=== PATIENT | female | born 1950 | race Caucasian/White ===

== ENCOUNTER → 2018-12-26 13:07 | Outpatient (CLI) | payer MEDICARE, OTHER, SELFPAY | PROVIDERS: Visit Provider Physician Assistant | DX: R68.89 Other general symptoms and signs (principal) | CPT/HCPCS: 87400 ==

== ENCOUNTER 2025-06-12 19:43 | Inpatient (IN) | payer MEDICARE, OTHER, SELFPAY ==
[2025-06-12] VITALS (10 sets, daily range): BP systolic 114–150; BP diastolic 54–65; PULSE 58–70; RESP 16–23; TEMP 36.1; O2SAT 92–99; BMI 17.4
--- NOTE | 2025-06-12 19:57 | EKG_ITS ---
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
[2025-06-12 20:08] LABS: Add Manual Diff / Slide Review NO; Hematocrit 38.2 % (36-46); Hemoglobin 13.1 g/dL (12.0-16.0); Lymphocytes Absolute Auto 1900 /uL (1100-4500); Mean Corpuscular HGB Conc 34.3 % (30-36); Mean Corpuscular Hemoglobin 33.8 PG (26-34); Mean Corpuscular Volume 98.8 fL (80-100); Platelet Count 231 X10^3/uL (150-400)
[2025-06-12 20:12] LABS: Alanine Aminotransferase 16 IU/L (<35); Albumin 4.1 g/dL (3.5-5.0); Albumin Globulin Ratio 1.5 (1.0-2.8); Alkaline Phosphatase 78 U/L (38-126); Blood Urea Nitrogen 22 mg/dL (7-17); Calcium 9.5 mg/dL (8.4-10.2); Carbon Dioxide 29 mmol/L (22-32); Chloride 102 mmol/L (98-107); Estimated Glomerular Filt Rate > 60 mL/min (>60); Globulin 2.8 g/dL (1.7-4.1); Glucose 173 mg/dL (70-99); HEMOLYSIS < 15 (0-50); Potassium 4.0 mmol/L (3.4-5.1); Sodium 135 mmol/L (137-145); Total Protein 6.9 g/dL (6.3-8.2)
[2025-06-12 21:01] LABS: Lipase 53838 U/L (23-300)
--- NOTE | 2025-06-12 21:25 | ED.ABDPAIN ---
HPI - Abdominal Pain General Chief Complaint: Abdominal Pain Stated Complaint: abd pain Time Seen by Provider: 06/12/25 20:05 Source: patient and EMS Mode of arrival: EMS History of Present Illness HPI narrative: 74-year-old female with no history of prior abdominopelvic surgeries, it is not recall any gallbladder problems or pancreas problems or ulcer problems, complains of periumbilical discomfort since noon earlier today, had nausea with nonbloody emesis x2 small amounts, no black or red color to emesis, no coffee-ground quality, no black or red stools, bowel movement earlier today unremarkable. Patient started prednisone taper for rheumatoid arthritis, no new medications, taking same azathioprine and valacyclovir and fluoxetine medications. She has started prednisone taper for her rheumatoid arthritis, no other new medications. Denies alcohol use. No recent trauma injury. MD complaint: abdominal pain Related Data Home Medications ?Medication ?Instructions ?Recorded ?Confirmed fluoxetine 20 mg capsule 20 mg PO DAILY 12/26/18 06/13/25 valacyclovir 500 mg tablet 500 mg PO DAILY 05/19/25 06/13/25 azathioprine 50 mg tablet 100 mg PO DAILY 06/13/25 06/13/25 ketoconazole 2 % topical cream 1 applic topical DAILY PRN Skin 06/13/25 06/13/25 condition metronidazole 0.75 % topical cream 1 applic topical BID 06/13/25 06/13/25 prednisone 5 mg tablet 10 mg PO DAILY 06/13/25 06/13/25 Allergies Allergy/AdvReac Type Severity Reaction Status Date / Time clindamycin Allergy Mild rash Verified 06/12/25 19:51 Patient History Medical History (Updated 06/13/25 @ 05:38 by Dani Mathews RN) Rheumatoid arthritis Anxiety Depression HSV-2 (herpes simplex virus 2) infection Exam Narrative Exam Narrative: GENERAL: Well-developed patient, in mild distress. HEAD: Atraumatic. Normocephalic. EYES: Pupils equal round and reactive. Extraocular motions intact. No scleral icterus. No injection or drainage. ENT: Nose without bleeding, purulent drainage. Throat without erythema, tonsillar hypertrophy or exudate. Airway patent. NECK: Trachea midline. Non tender CARDIOVASCULAR: Regular rate and rhythm without murmurs, gallops, or rubs. RESPIRATORY: Clear to auscultation. Breath sounds equal bilaterally. No wheezes, rales, or rhonchi. GASTROINTESTINAL: Abdomen soft, non-tender, nondistended. EXTREMITIES: No edema or joint tenderness. BACK: Nontender without deformity or crepitance. No flank tenderness. NEURO: AOx3. Motor functions grossly nonfocal. SKIN: No rash or erythema of visible areas Initial Vital Signs Initial Vital Signs: Vital Signs Pulse Rate 63 06/12/25 19:46 Blood Pressure 129/60 06/12/25 19:46 Pulse Oximetry 92 06/12/25 19:46 Course Orders Ordered: ED Orders 06/12/25 22:36 CT abdomen pelvis w con Stat Acetaminophen (Acetaminophen 650 Mg Supp) 650 mg WI Q4HR PRN PRN Reason: Fever/Mild Pain (1-3) Famotidine (Famotidine 20 Mg/2 Ml Vial) 20 mg IV NOW MONY Last Admin: 06/12/25 22:41 Dose: 20 mg Documented By: LUIS ANTONIO Hydromorphone HCl (Hydromorphone Hcl 0.5 Mg/0.5 Ml Syringe) 0.5 mg IV Q2H PRN PRN Reason: Pain, Severe (7-10) Sodium Chloride (Normal Saline 0.9%) 1,000 mls @ 200 mls/hr IV CONT MONY Ketorolac Tromethamine (Ketorolac 30 Mg/Ml Vial) 15 mg IV Q6H PRN PRN Reason: moderate pain Stop: 06/18/25 05:35 Naloxone HCl (Naloxone 0.4 Mg/Ml Vial) 0.2 mg IV Q2MIN PRN PRN Reason: Opiate Reversal Ondansetron HCl (Ondansetron 4 Mg/2 Ml Inj) 4 mg IV NOW PRN PRN Reason: Nausea And Vomiting Ondansetron HCl (Ondansetron 4 Mg Odt) 4 mg PO NOW PRN PRN Reason: Nausea And Vomiting Discontinued Medications Hydromorphone HCl (Hydromorphone Hcl 0.5 Mg/0.5 Ml Syringe) 0.5 mg IV NOW ONE Stop: 06/12/25 23:33 Last Admin: 06/12/25 23:37 Dose: 0.5 mg Documented By: LUIS ANTONIO Sodium Chloride (Normal Saline 0.9%) 1,000 mls @ 1,000 mls/hr IV BOLUS ONE Stop: 06/12/25 23:25 Last Infusion: 06/12/25 23:32 Dose: Infused Documented By: LUIS ANTONIO Admin: 06/12/25 22:41 Dose: 1,000 mls/hr Documented By: LUIS ANTONIO Vital Signs Vital signs: Vital Signs - 8 hr 06/12/25 22:00 06/12/25 22:00 06/12/25 22:30 Pulse Rate 60 Respiratory Rate 23 Blood Pressure 136/60 136/60 Pulse Oximetry 99 Oxygen Delivery Method 06/12/25 22:30 06/12/25 23:00 06/12/25 23:00 Pulse Rate 62 63 Respiratory Rate 23 22 Blood Pressure 150/65 H Pulse Oximetry 96 98 Oxygen Delivery Method 06/13/25 01:57 06/13/25 01:59 06/13/25 01:59 Pulse Rate 63 61 Respiratory Rate 21 Blood Pressure 130/58 L Pulse Oximetry 94 98 Oxygen Delivery Method 06/13/25 02:00 06/13/25 02:00 06/13/25 02:30 Pulse Rate 60 62 Respiratory Rate 13 14 Blood Pressure 132/62 Pulse Oximetry 97 96 Oxygen Delivery Method 06/13/25 02:30 06/13/25 03:00 06/13/25 03:00 Pulse Rate 68 Respiratory Rate 16 Blood Pressure 119/56 L 122/61 Pulse Oximetry 97 Oxygen Delivery Method Room Air 06/13/25 03:30 06/13/25 03:30 06/13/25 04:00 Pulse Rate 62 74 Respiratory Rate 18 24 Blood Pressure 120/57 L Pulse Oximetry 97 92 Oxygen Delivery Method 06/13/25 04:01 06/13/25 04:01 06/13/25 04:30 Pulse Rate 66 61 Respiratory Rate 24 17 Blood Pressure 147/68 H Pulse Oximetry 92 97 Oxygen Delivery Method 06/13/25 04:31 06/13/25 04:31 Pulse Rate 60 Respiratory Rate 21 Blood Pressure 129/58 L Pulse Oximetry 96 Oxygen Delivery Method MDM - Abdominal Pain Lab Data Attestation: I reviewed the patient's lab results. Lab results narrative: White blood cell count 9100, hemoglobin 13.1, platelets adequate. Glucose 173, renal function unremarkable, serum CO2 29 normal, potassium normal, sodium 135 slight decreased. Liver functions normal. Lipase 22517 markedly elevated. Urinalysis pending. 06/12/25 19:40 06/12/25 19:40 Labs: Lab Results 06/12/25 Range/Units 19:40 WBC 9.1 (4.5-11.0) X10^3/uL RBC 3.86 L (4.0-5.2) X10^6/uL Hgb 13.1 (12.0-16.0) g/dL Hct 38.2 (36-46) % MCV 98.8 (80-100) fL MCH 33.8 (26-34) PG MCHC 34.3 (30-36) % RDW 14.4 (11.6-14.8) % Plt Count 231 (150-400) X10^3/uL Neut % (Auto) 73.7 (50-75) % Lymph % (Auto) 20.6 L (25-40) % [place] % (Auto) 4.0 (3-14) % Eos % (Auto) 0.7 L (2-4) % Baso % (Auto) 1.0 (0-2) % Neut # (Auto) 6700 (3186-7963) /uL Lymph # (Auto) 1900 (6330-6859) /uL [place] # (Auto) 400 (0-900) /uL Eos # (Auto) 100 (0-450) /uL Baso # (Auto) 100 (0-100) /uL Sodium 135 L (137-145) mmol/L Potassium 4.0 (3.4-5.1) mmol/L Chloride 102 (98-107) mmol/L Carbon Dioxide 29 (22-32) mmol/L BUN 22 H (7-17) mg/dL Creatinine 0.67 (0.52-1.04) mg/dL Estimated GFR > 60 (>60) mL/min BUN/Creatinine Ratio 32.8 H (6-22) Glucose 173 H (70-99) mg/dL Calcium 9.5 (8.4-10.2) mg/dL Total Bilirubin 0.9 (0.2-1.3) mg/dL AST 27 (14-36) IU/L ALT 16 (<35) IU/L Alkaline Phosphatase 78 (38-126) U/L Total Protein 6.9 (6.3-8.2) g/dL Albumin 4.1 (3.5-5.0) g/dL Globulin 2.8 (1.7-4.1) g/dL Albumin/Globulin Ratio 1.5 (1.0-2.8) Lipase 75508 H (23-300) U/L Point of care testing: Urine Dip Bedside Urine Glucose Negative Bedside Urine Bilirubin - Negative Bedside Urine Ketone - Negative Urine Specific [place] 1.010 Bedside Urine Occult Blood - Negative Bedside Urine pH 7.5 Bedside Urine Protein +/- 15 Bedside Urine Urobilinogen +/- 1mg Bedside Urine Nitrite - Negative Bedside Urine Leukocytes - Negative Esterase ECG Data Attestation: I personally reviewed and interpreted this ECG as follows: Interpretation: 2010, normal sinus rhythm with PACs, ventricular rate 62, no obvious ST segment elevation or depression changes. WI 166, QRS 78, QTC 450. MDM Narrative Medical decision making narrative: 74-year-old female with history of rheumatoid arthritis, current oral prednisone taper, otherwise taking the same chronic medications (azathioprine, valacyclovir, fluoxetine), no prior abdominopelvic surgeries, no known PUD, complains of periumbilical abdominal pain since noon today, some tenderness periumbilical and supraumbilical. Denies alcohol use. No recent trauma. Labs pending. DDx consider PUD, PAULA, gastritis, pancreatitis, choledocholithiasis, aortic aneurysm/dissection, hernia, musculoskeletal, ACS, other. IV Pepcid. OCT then IV Zofran given, nausea resolved. Declines pain medication when offered. EKG without obvious ischemic changes, sinus rhythm. Lab data: White blood cell count 9100, hemoglobin 13.1, platelets adequate. Glucose 173, renal function unremarkable, serum CO2 29 normal, potassium normal, sodium 135 slight decreased. Liver functions normal. Lipase 55215 markedly elevated. Urinalysis pending. Elevated lipase with mid abdominal tenderness, liver functions nonobstructive, consider pancreatic lesion/pancreatitis. PACS system down here, consider transfer to [facility] for imaging/reading interpretation. Patient agreeable. Declines pain medication when offered. Transferred to [facility] for CT imaging during in-house PACS down time. CT abdomen and pelvis. Impressions: ?Findings concerning for acute pancreatitis suggest clinical correlation with pancreatic enzyme levels. No pseudocyst formation. No bowel obstruction or abnormal bowel wall thickening. Moderate constipation. No abscess collection. No significant. No free fluid or gross free air. No obstructing renal stones or hydronephrosis. See tele radiology report. Lipasemia with CT findings consistent with pancreatitis. Denies alcohol use, gallstones, new medications, thiazide diuretic, bee wasp scorpion stings, trauma, viral illness symptoms. Patient however has been on steroid taper for her rheumatoid arthritis, if cause/contributor. Also has taken azathioprine for her RA, if a cause/contributor. Autoimmune could be another cause. Blood specimen not mentioned by lab to look lipemic. Advised admission for IV fluids, bowel rest, analgesics. Patient/ expressed understanding. We will contact hospitalist. 0430, case discussed with hospitalist Dr Blank who accepts patient for admission Critical Care Time Critical Care Time Critical Care Time: Yes Total Critical Care Time: 35 Attestation: The high probability of a clinically significant, sudden or life threatening deterioration of the [gastrointestinal, abdominopelvic] systems required my full and direct attention, intervention and personal management. The aggregate critical care time was [35] minutes. This time is in addition to time spent performing reported procedures but includes the following: [x] Data Review and interpretation [x] Patient assessment and monitoring of vital signs [x] Documentation [x] Medication orders and management Discharge Plan Departure Patient Disposition: Admitted As Inpatient Clinical Impression: Pancreatitis Admit Date/Time: 06/13/25 04:31 Admit Provider: Dean Rodriguez
[2025-06-12] MEDS: FAMOTIDINE 20 MG/2 ML VIAL IV (22:41)
[2025-06-12] MEDS: SODIUM CHLORIDE 0.9% 1,000 ML 1000 ML IV (22:41)
--- NOTE | 2025-06-12 23:40 | PC.NURSE ---
[facility] is here to transport patient to [facility] for CT imaging. Pt's went home. Pt's belongings are with her, per her request.
[2025-06-13] VITALS (16 sets, daily range): BP systolic 108–147; BP diastolic 42–68; PULSE 59–74; RESP 12–24; TEMP 35.9–36.8; O2SAT 92–100; BMI 17.4
--- NOTE | 2025-06-13 01:57 | PC.NURSE ---
[facility] Pt denies any pain upon arrival.
--- NOTE | 2025-06-13 05:38 | PM.HP.1 ---
History of Present Illness History of Present Illness Date Patient Seen: 06/13/25 Chief complaint: abd pain Narrative: 74 y/o presented to ED with nausea, vomiting and epigastric pain. ED workup showing high lipase and CT abdomen done in outside hospital apparently showing pancreatitis w/o hemorrhage, necrosis or pseudocyst. She does not drink alcohol, LFTs unremarkable, did not have recent infections or abdominal injuries. PMH of rheumatoid arthritis and only recent change of her medications was added prednisone taper. Treated with antiemetic, IVFs and analgesics and admitted to medicine. Unable to tolerate PO. [facility] Medical History (Updated 06/13/25 @ 06:13 by Dean Martinez MD) Rheumatoid arthritis Anxiety Depression HSV-2 (herpes simplex virus 2) infection Meds Home Medications and Allergies Home Medications ?Medication ?Instructions ?Recorded ?Confirmed ?Type fluoxetine 20 mg capsule 20 mg PO DAILY 12/26/18 06/13/25 History valacyclovir 500 mg tablet 500 mg PO DAILY 05/19/25 06/13/25 History azathioprine 50 mg tablet 100 mg PO DAILY 06/13/25 06/13/25 History ketoconazole 2 % topical cream 1 applic topical DAILY PRN Skin 06/13/25 06/13/25 History condition metronidazole 0.75 % topical cream 1 applic topical BID 06/13/25 06/13/25 History prednisone 5 mg tablet 10 mg PO DAILY 06/13/25 06/13/25 History Allergies Allergy/AdvReac Type Severity Reaction Status Date / Time clindamycin Allergy Mild rash Verified 06/12/25 19:51 Review of Systems Review of Systems Narrative: General - w/o fever or chills GI - nausea, vomiting - 2 episodes, epigastric pain CVS - w/o chest pain RS - w/o shortness of breath UG - w/o dysuria MSK - chronic polyarthralgia Exam Vital Signs (past 8 hours): - 06/12/25 22:00 06/12/25 22:00 06/12/25 22:30 Pulse Rate 60 Respiratory Rate 23 Blood Pressure 136/60 136/60 Pulse Oximetry 99 Oxygen Delivery Method 06/12/25 22:30 06/12/25 23:00 06/12/25 23:00 Pulse Rate 62 63 Respiratory Rate 23 22 Blood Pressure 150/65 H Pulse Oximetry 96 98 Oxygen Delivery Method 06/13/25 01:57 06/13/25 01:59 06/13/25 01:59 Pulse Rate 63 61 Respiratory Rate 21 Blood Pressure 130/58 L Pulse Oximetry 94 98 Oxygen Delivery Method 06/13/25 02:00 06/13/25 02:00 06/13/25 02:30 Pulse Rate 60 62 Respiratory Rate 13 14 Blood Pressure 132/62 Pulse Oximetry 97 96 Oxygen Delivery Method 06/13/25 02:30 06/13/25 03:00 06/13/25 03:00 Pulse Rate 68 Respiratory Rate 16 Blood Pressure 119/56 L 122/61 Pulse Oximetry 97 Oxygen Delivery Method Room Air 06/13/25 03:30 06/13/25 03:30 06/13/25 04:00 Pulse Rate 62 74 Respiratory Rate 18 24 Blood Pressure 120/57 L Pulse Oximetry 97 92 Oxygen Delivery Method 06/13/25 04:01 06/13/25 04:01 06/13/25 04:30 Pulse Rate 66 61 Respiratory Rate 24 17 Blood Pressure 147/68 H Pulse Oximetry 92 97 Oxygen Delivery Method 06/13/25 04:31 06/13/25 04:31 Pulse Rate 60 Respiratory Rate 21 Blood Pressure 129/58 L Pulse Oximetry 96 Oxygen Delivery Method Oxygen Delivery Method Room Air Narrative Exam Narrative: General - in no distress HEENT - normocephalic, EROMI, PER, supple neck, oropharynx dry CVS - RRR RS - normal respiratory effort GI - abdomen noty distended, tender epigastrium Skin - w/o rashes or jaundice Neuro - intact Psych - lucid, normal mood and affect Objective ECG Impression: NSR 62, QTc 450 Labs 06/12/25 19:40 06/12/25 19:40 Labs: Laboratory Results - last 24 hr 06/12/25 19:40 WBC 9.1 RBC 3.86 L Hgb 13.1 Hct 38.2 MCV 98.8 MCH 33.8 MCHC 34.3 RDW 14.4 Plt Count 231 Neut % (Auto) 73.7 Lymph % (Auto) 20.6 L [place] % (Auto) 4.0 Eos % (Auto) 0.7 L Baso % (Auto) 1.0 Neut # (Auto) 6700 Lymph # (Auto) 1900 [place] # (Auto) 400 Eos # (Auto) 100 Baso # (Auto) 100 Sodium 135 L Potassium 4.0 Chloride 102 Carbon Dioxide 29 BUN 22 H Creatinine 0.67 Estimated GFR > 60 BUN/Creatinine Ratio 32.8 H Glucose 173 H Calcium 9.5 Total Bilirubin 0.9 AST 27 ALT 16 Alkaline Phosphatase 78 Total Protein 6.9 Albumin 4.1 Globulin 2.8 Albumin/Globulin Ratio 1.5 Lipase 66044 H Assessment & Plan Assessment and plan (1) Acute pancreatitis: Status: Acute (2) Rheumatoid arthritis: Status: Acute (3) Depression: Status: Acute (4) Anxiety: Status: Acute (5) HSV-2 (herpes simplex virus 2) infection: Status: Acute Assessment & Plan narrative: Acute Pancreatitis - triglycerides pending but lab did not report lipemia apparently - possibly related to prednisone vs idiopathic - IVFs, NPO for now, pain and nausea management Rheumatoid Arthritis - at home on azatiprine and recently started prednisone - both held Anxiety / Depression - Prozazc at home Herpes infection - Valacyclovir at home DVT prophylaxis - SCDs Patient consented to telemedicine, audio-visual encounter with RN assisting during the exam. Patient located at [place], [place]. Provider located in [place]. Time-Based Coding :: [TOTAL MINUTES] spent with patient and on the chart (including review of chart, obtaining history, exam, reviewing outside data, placing orders, documenting exam and treatment plan, and counseling patient) on [DATE].
[2025-06-13] MEDS: SODIUM CHLORIDE 0.9% 1,000 ML 200 ML IV ×4 (05:53→20:38)
[2025-06-13 06:59] LABS: Cholesterol 204 mg/dL (140-199); HDL Cholesterol 105 mg/dL (40-60); Triglycerides 94 mg/dL (35-150)
--- NOTE | 2025-06-13 07:10 | P.HP_ITS ---
History of Present Illness History of Present Illness Date Patient Seen: 06/13/25 Chief complaint: abd pain Narrative: This is a 74 y/o female with rheumatoid arthritis, anxiety, depression and a history of HSV 2 who presented with around 12 hours of nausea, vomiting and epigastric pain. ED workup showed high lipase and CT abdomen done at [facility] (our system was down) showed pancreatitis w/o hemorrhage, necrosis or pseudocyst. She does not drink alcohol, LFTs unremarkable, did not have recent infections or abdominal injuries. She has rheumatoid arthritis and only recent change of her medications was 10 mg on a prednisone taper. Treated with antiemetic, IVFs and analgesics and admitted to medicine. Unable to tolerate PO. COUNTS INCLUDE 234 BEDS AT THE [facility] Medical History (Updated 06/13/25 @ 14:10 by Rasta Lora MD) HLD (hyperlipidemia) Rheumatoid arthritis Anxiety Depression HSV-2 (herpes simplex virus 2) infection Surgical History (Updated 06/13/25 @ 14:10 by Rasta Lora MD) No pertinent past surgical history Family History (Updated 06/13/25 @ 14:09 by Rasta Lora MD) Mother Hx of cholecystectomy Social History (Updated 06/13/25 @ 14:11 by Rasta Lora MD) alcohol intake: former Meds Home Medications and Allergies Home Medications ?Medication ?Instructions ?Recorded ?Confirmed ?Type fluoxetine 20 mg capsule 20 mg PO DAILY 12/26/1805/30 History valacyclovir 500 mg tablet 500 mg PO DAILY 05/19/25 History azathioprine 50 mg tablet 100 mg PO DAILY 06/13/25 History ketoconazole 2 % topical cream 1 applic topical DAILY PRN Skin 06/13/25 06/13/25 History condition metronidazole 0.75 % topical cream 1 applic topical BI D 06/13/25 06/13/25 History prednisone 5 mg tablet 10 mg PO DAILY 06/13/2505/30 History Allergies Allergy/AdvReac Type Severity Reaction Status Date / Time clindamycin Allergy Mild rash Verified 06/12/25 19:51 Review of Systems Review of Systems Narrative: Positive for arthritis pain, vomiting, abdominal pain, decreased appetite, lack of taste. Negative for fevers, chills, sweats, chest pain, coughing, shortness breast, headache, dysuria, diarrhea, headache and sore throat. Exam Vital Signs (past 8 hours): - 06/13/25 01:57 06/13/25 01:59 06/13/25 01:59 Temperature Pulse Rate 63 61 Respiratory Rate 21 Blood Pressure 130/58 L Pulse Oximetry 94 98 Oxygen Delivery Method 06/13/25 02:00 06/13/25 02:00 06/13/25 02:30 Temperature Pulse Rate 60 62 Respiratory Rate 13 14 Blood Pressure 132/62 Pulse Oximetry 97 96 Oxygen Delivery Method 06/13/25 02:30 06/13/25 03:00 06/13/25 03:00 Temperature Pulse Rate 68 Respiratory Rate 16 Blood Pressure 119/56 L 122/61 Pulse Oximetry 97 Oxygen Delivery Method Room Air 06/13/25 03:30 06/13/25 03:30 06/13/25 04:00 Temperature Pulse Rate 62 74 Respiratory Rate 18 24 Blood Pressure 120/57 L Pulse Oximetry 97 92 Oxygen Delivery Method 06/13/25 04:01 06/13/25 04:01 06/13/25 04:30 Temperature Pulse Rate 66 61 Respiratory Rate 24 17 Blood Pressure 147/68 H Pulse Oximetry 92 97 Oxygen Delivery Method 06/13/25 04:31 06/13/25 04:31 06/13/25 05:32 Temperature 96.8 F L Pulse Rate 60 59 L Respiratory Rate 21 14 Blood Pressure 129/58 L 146/62 H Pulse Oximetry 96 97 Oxygen Delivery Method Oxygen Delivery Method Room Air Narrative Exam Narrative: Alert and oriented x3. No apparent distress. Pupils are equally round and reactive to light and accommodation. Extraocular muscles are intact. Sclerae are pink and nonicteric. Throat looks normal. No lymph nodes are felt head, neck, supraclavicular area. JVD is less than 6 cm. There is no thyromegaly. No carotid bruits are heard. Heart is regular rate and rhythm without murmur. Lungs are clear to auscultation bilaterally. Abdomen is soft, bowel sounds positive, there is no organomegaly. There is moderate periumbilical tenderness. There is no tenderness elsewhere. Extremities have no ankle edema. Skin has no rash or jaundice. There is no tremor. Reflexes are normal. Motor function is 5/5 throughout. Cranial nerves 2-12 test intact. Objective Labs 06/12/25 19:40 09/14/25 19:40 Labs: Laboratory Results - last 24 hr 06/12/25 06/13/25 19:40 06:25 WBC 9.1 RBC 3.86 L Hgb 13.1 Hct 38.2 MCV 98.8 MCH 33.8 MCHC 34.3 RDW 14.4 Plt Count 231 Neut % (Auto) 73.7 Lymph % (Auto) 20.6 L [place] % (Auto) 4.0 Eos % (Auto) 0.7 L Baso % (Auto) 1.0 Neut # (Auto) 6700 Lymph # (Auto) 1900 [place] # (Auto) 400 Eos # (Auto) 100 Baso # (Auto) 100 Sodium 135 L Potassium 4.0 Chloride 102 Carbon Dioxide 29 BUN 22 H Creatinine 0.67 Estimated GFR > 60 BUN/Creatinine Ratio 32.8 H Glucose 173 H Calcium 9.5 Total Bilirubin 0.9 AST 27 ALT 16 Alkaline Phosphatase 78 Total Protein 6.9 Albumin 4.1 Globulin 2.8 Albumin/Globulin Ratio 1.5 Triglycerides 94 Cholesterol 204 H LDL Cholesterol, Calc 80 HDL Cholesterol 105 H Lipase 35834 H Assessment & Plan Assessment & Plan narrative: This is a 74 y/o female with rheumatoid arthritis, anxiety, depression and a history of HSV 2 who presented with around 12 hours of nausea, vomiting and epigastric pain. ED workup showed high lipase and CT abdomen done at [facility] (our system was down) showed pancreatitis w/o hemorrhage, necrosis or pseudocyst. Acute Pancreatitis - no recent use of alcohol. No history of excessive daily use. - triglycerides 74, cholesterol 204, LDL 80 - possibly related to prednisone vs idiopathic - IVFs, NPO for now, pain and nausea management - CT abdomen and pelvis. Impressions: ?Findings concerning for acute pancreatitis suggest clinical correlation with pancreatic enzyme levels. No pseudocyst formation. No bowel obstruction or abnormal bowel wall thickening. Moderate constipation. No abscess collection. No significant. No free fluid or gross free air. No obstructing renal stones or hydronephrosis. -abdominal ultrasound to rule out cholelithiasis ordered. Rheumatoid Arthritis - at home on azathioprine and at 10 mg of Prednisone on a recent taper - both held Anxiety / Depression - Prozac at home Herpes infection - Valacyclovir at home Enoxaparin for DVT prevention. Her is her backup decision maker. Time-Based Coding :: [TOTAL MINUTES] spent with patient and on the chart (including review of chart, obtaining history, exam, reviewing outside data, placing orders, documenting exam and treatment plan, and counseling patient) on [DATE].
[2025-06-13] MEDS: KETOROLAC 30 MG/ML VIAL 15 MG IV (10:51)
--- NOTE | 2025-06-13 15:31 | CM.DANOTE ---
Patient is a 74 yo female who was admitted INPT Status on 06/13/25 for Acute Pancreatitis. Pt has MCR and REG [place] for insurance and her PCP is not listed. EMR was reviewed. Per MD, pt with hx of rheumatoid arthritis and admitted after imaging showed acute pancreatitis, not ETOH related. Pt currently NPO and getting fluids and likely another couple days before stable for discharge. Per Rn, pt has been independent in room and no concerns noted. SW met bedside with pt briefly and explained role and she confirms she lives at home in [place] with her Didi and is active and independent at baseline. Pt does not typically use DME for ambulation unless her arthritis acts up and spouse normally drives. Pt preference is to discharge home when stable and currently does not anticipate any needs at discharge. Pt needing to use the restroom quickly and therefore assessment was more brief this visit. Plan: SW to follow for eventual attempts at advancing diet to see how pt can tolerate and confirm safe plan of home with spouse and any further identified discharge planning needs. ANASTASIIA Glass Discharge Planning/Care Management Advanced directive, confirm from FAMILY Start: 06/13/25 05:29 Freq: Q24H Status: Active Protocol: Document 06/13/25 05:29 TD (Rec: 06/13/25 05:29 TD [id number]) Advance Directive, confirm on record Time 05:00 Person contacted Didi Byrd Copy received No CM Discharge Assessment Start: 06/13/25 05:11 Freq: Status: Active Protocol: Document 06/13/25 15:24 BF (Rec: 06/13/25 15:28 BF [id number]) Discharge Planning Assessment Assigned Discharge ANASTASIIA Gotti Breakfast Supervisor Insurance Medicare DPOA/Assigned Didigeovanna Byrd Designee Name Contact Information [phone] Advance Directives? Yes: living will is at home Advance Directives No on File History Provided By Patient,Medical Record Has Patient been No admitted in last 30 days? Prior Living House Arrangements Household Members spouse Type of Drives own vehicle transporation used prior to admit Independent with ADL Yes 's Is patient alert and Yes oriented? Caregiver for No Another Barriers to No Discharge Discharge Plan Home Transportation Spouse to transport pt at d/c. Arrangement Referrals Initiated None needed Additional Comment Pending progress Whiteboard Updated Yes in Patient Room with name and ext. # of Asset Administrator Review Status In Process Please Provide Date 06/13/25 Initial DC Assessment Was Performed Next Review Type Continued Stay Review
[2025-06-14] MEDS: SODIUM CHLORIDE 0.9% 1,000 ML 200 ML IV ×2 (01:58→05:42)
[2025-06-14 03:00] VITALS: BP 110/59; PULSE 65; RESP 18; TEMP 36.6; O2SAT 94
[2025-06-14 04:26] LABS: Add Manual Diff / Slide Review NO; Hematocrit 31.8 % (36-46); Hemoglobin 11.0 g/dL (12.0-16.0); Lymphocytes Absolute Auto 1400 /uL (1100-4500); Mean Corpuscular HGB Conc 34.7 % (30-36); Mean Corpuscular Hemoglobin 34.7 PG (26-34); Mean Corpuscular Volume 100.1 fL (80-100); Platelet Count 152 X10^3/uL (150-400)
[2025-06-14 04:35] LABS: Alanine Aminotransferase 11 IU/L (<35); Albumin 3.1 g/dL (3.5-5.0); Albumin Globulin Ratio 1.3 (1.0-2.8); Alkaline Phosphatase 54 U/L (38-126); Blood Urea Nitrogen 18 mg/dL (7-17); Calcium 7.9 mg/dL (8.4-10.2); Carbon Dioxide 19 mmol/L (22-32); Chloride 111 mmol/L (98-107); Estimated Glomerular Filt Rate > 60 mL/min (>60); Globulin 2.3 g/dL (1.7-4.1); Glucose 51 mg/dL (70-99); HEMOLYSIS < 15 (0-50); Potassium 3.8 mmol/L (3.4-5.1); Sodium 136 mmol/L (137-145); Total Protein 5.4 g/dL (6.3-8.2)
--- NOTE | 2025-06-14 07:12 | PM.PN.1 ---
Subjective Subjective Date Patient Seen: 06/14/25 Interval history: This is a 74 y/o female with rheumatoid arthritis, anxiety, depression and a history of HSV 2 who presented with around 12 hours of nausea, vomiting and epigastric pain. ED workup showed high lipase and CT abdomen done at [facility] (our system was down) showed pancreatitis w/o hemorrhage, necrosis or pseudocyst. She does not drink alcohol, LFTs unremarkable, did not have recent infections or abdominal injuries. She has rheumatoid arthritis and only recent change of her medications was 10 mg on a prednisone taper. Treated with antiemetic, IVFs and analgesics and admitted to medicine. Unable to tolerate PO. 06/14: She is beginning to feel hungry. The pain has resolved. We will back off on the IV fluid rate and trial her on a diet cautiously today. The white count is 5.7. The MCV is 100.1. The hemoglobin is 11.0. The liver enzymes are normal. The BMP is normal. Meds Home Medications and Allergies Home Medications ?Medication ?Instructions ?Recorded ?Confirmed ?Type fluoxetine 20 mg capsule 20 mg PO DAILY 12/26/18 06/13/25 History valacyclovir 500 mg tablet 500 mg PO DAILY 05/19/25 06/13/25 History azathioprine 50 mg tablet 100 mg PO DAILY 06/13/25 06/13/25 History ketoconazole 2 % topical cream 1 applic topical DAILY PRN Skin 06/13/25 06/13/25 History condition metronidazole 0.75 % topical cream 1 applic topical BID 06/13/25 06/13/25 History prednisone 5 mg tablet 10 mg PO DAILY 06/13/25 06/13/25 History Assessment & Plan Assessment & Plan narrative: This is a 74 y/o female with rheumatoid arthritis, anxiety, depression and a history of HSV 2 who presented with around 12 hours of nausea, vomiting and epigastric pain. ED workup showed high lipase and CT abdomen done at [facility] (our system was down) showed pancreatitis w/o hemorrhage, necrosis or pseudocyst. Acute Pancreatitis - no recent use of alcohol. No history of excessive daily use. - triglycerides 74, cholesterol 204, LDL 80 - possibly related to prednisone vs idiopathic - IVFs, Begin diet cautiously on 06/14, pain and nausea management - CT abdomen and pelvis. Impressions: ?Findings concerning for acute pancreatitis suggest clinical correlation with pancreatic enzyme levels. No pseudocyst formation. No bowel obstruction or abnormal bowel wall thickening. Moderate constipation. No abscess collection. No significant. No free fluid or gross free air. No obstructing renal stones or hydronephrosis. -abdominal ultrasound to rule out cholelithiasis ordered. Rheumatoid Arthritis - at home she is on azathioprine and 10 mg of Prednisone on a recent taper - both held Anxiety / Depression - Prozac at home Herpes infection - Valacyclovir at home Enoxaparin for DVT prevention. Exam Vital Signs (past 8 hours): - 06/14/25 03:00 Temperature 97.8 F Pulse Rate 65 Respiratory Rate 18 Blood Pressure 110/59 L Pulse Oximetry 94 Oxygen Flow Rate 0 Oxygen Delivery Method Room Air Oxygen Flow Rate 0 Narrative Exam Narrative: Alert and oriented x3. No apparent distress. Heart is regular rate and rhythm without murmur. Lungs are clear to auscultation bilaterally. Abdomen is soft, bowel sounds positive, nontender, no organomegaly. Extremities have no ankle edema. Objective Labs 06/14/25 03:49 06/14/25 03:49 Labs: Laboratory Results - last 24 hr 06/14/25 03:49 WBC 5.7 RBC 3.17 L Hgb 11.0 L Hct 31.8 L MCV 100.1 H MCH 34.7 H MCHC 34.7 RDW 15.1 H Plt Count 152 Neut % (Auto) 59.7 Lymph % (Auto) 24.4 L [place] % (Auto) 9.7 Eos % (Auto) 5.2 H Baso % (Auto) 1.0 Neut # (Auto) 3400 Lymph # (Auto) 1400 [place] # (Auto) 500 Eos # (Auto) 300 Baso # (Auto) 100 Sodium 136 L Potassium 3.8 Chloride 111 H Carbon Dioxide 19 L BUN 18 H Creatinine 0.61 Estimated GFR > 60 BUN/Creatinine Ratio 29.5 H Glucose 51 L D Calcium 7.9 L Total Bilirubin 1.1 AST 23 ALT 11 Alkaline Phosphatase 54 Total Protein 5.4 L Albumin 3.1 L Globulin 2.3 Albumin/Globulin Ratio 1.3 PFSH Medical History (Updated 06/13/25 @ 14:10 by Rasta Lora MD) HLD (hyperlipidemia) Rheumatoid arthritis Anxiety Depression HSV-2 (herpes simplex virus 2) infection Surgical History (Updated 06/13/25 @ 14:10 by Rasta Lora MD) No pertinent past surgical history Family History (Updated 06/13/25 @ 14:09 by Rasta Lora MD) Mother Hx of cholecystectomy Social History (Updated 06/13/25 @ 14:11 by Rasta Lora MD) household members: spouse alcohol intake: former Assessment & Plan Time-Based Coding :: [TOTAL MINUTES] spent with patient and on the chart (including review of chart, obtaining history, exam, reviewing outside data, placing orders, documenting exam and treatment plan, and counseling patient) on [DATE].
[2025-06-14 08:00] VITALS: BP 119/89; PULSE 65; RESP 16; TEMP 36.5; O2SAT 100
--- NOTE | 2025-06-14 09:31 | CM.DPNOTE ---
DCP Note HEAD COOK reviewed EMR per chart review, remains NPO. likely here another few days. no new needs identified at this time P: home with spouse when medically stable. no identified barriers for safe dc home. Will continue to follow as needed for DCP coordination ANASTASIIA King
--- NOTE | 2025-06-14 09:36 | DI.US.S_ITS ---
PROCEDURE: US ABDOMEN COMPLETE INDICATIONS: Pancreatitis TECHNIQUE: Real-time scanning was performed of the abdominal and retroperitoneal organs, with image documentation. COMPARISON: [facility], CT, CT ABDOMEN PELVIS WITH CONTRAST, 06/13/2025, 1:10. FINDINGS: Liver: Liver is normal in size and homogeneous in echotexture. Gallbladder: 0.7 centimeter gallstone. No wall thickening. No pericholecystic edema. Negative sonographic Beatty's sign. Biliary ducts: Intrahepatic bile ducts are non-dilated. Extrahepatic bile duct caliber measures 3.3 mm. Normal is 6-7 mm or less in diameter, or 10 mm or less post-cholecystectomy. Pancreas: Pancreas has cord cyst echotexture . Miscellaneous: Small volume of fluid noted superior to the spleen. IMPRESSION: Cholelithiasis without sonographic evidence of cholecystitis. No biliary dilatation. Pancreatic coarse echotexture likely related to pancreatitis. Small volume of free fluid. Dictated by: Myrna Crews MD, PhD on 06/14/2025 at 11:42 Approved by: Myrna Crews MD, PhD on 06/14/2025 at 11:44
[2025-06-14 12:00] VITALS: BP 107/44; RESP 18; TEMP 36.6; O2SAT 96
--- NOTE | 2025-06-14 12:46 | PM.CN.IH.1 ---
History of Present Illness Consult details Date Patient Seen: 06/14/25 Time Patient Seen: 12:46 Chief complaint: abd pain Reason for consult: skin Lesion Left Leg Narrative: 74 year old female presents with a dark spot on her lower left leg laterally. it initially was tender but that has resolved . it has remained stable in size. she denies any trauma Meds Home Medications and Allergies Home Medications ?Medication ?Instructions ?Recorded ?Confirmed ?Type fluoxetine 20 mg capsule 20 mg PO DAILY 12/26/18 06/13/25 History valacyclovir 500 mg tablet 500 mg PO DAILY 05/19/25 06/13/25 History azathioprine 50 mg tablet 100 mg PO DAILY 06/13/25 06/13/25 History ketoconazole 2 % topical cream 1 applic topical DAILY PRN Skin 06/13/25 06/13/25 History condition metronidazole 0.75 % topical cream 1 applic topical BID 06/13/25 06/13/25 History prednisone 5 mg tablet 10 mg PO DAILY 06/13/25 06/13/25 History Allergies Allergy/AdvReac Type Severity Reaction Status Date / Time clindamycin Allergy Mild rash Verified 06/12/25 19:51 Review of Systems Review of Systems ROS: Yes All systems reviewed with the patient and are negative except as otherwise documented Exam Vital Signs (past 8 hours): - 06/14/25 08:00 Temperature 97.7 F Pulse Rate 65 Respiratory Rate 16 Blood Pressure 119/89 Pulse Oximetry 100 Oxygen Flow Rate 0 Oxygen Delivery Method Room Air Oxygen Flow Rate 0 Narrative Exam Narrative: there is a bout a 1 cm viloceous spot on the left calf laterally. there is a central punctum with dark red. old blood dischrge. there is no surrounding erythema or induration. there is no tenderness to palpation. Objective Labs 06/14/25 03:49 06/14/25 03:49 Labs: Laboratory Results - last 24 hr 06/14/25 03:49 WBC 5.7 RBC 3.17 L Hgb 11.0 L Hct 31.8 L MCV 100.1 H MCH 34.7 H MCHC 34.7 RDW 15.1 H Plt Count 152 Neut % (Auto) 59.7 Lymph % (Auto) 24.4 L [place] % (Auto) 9.7 Eos % (Auto) 5.2 H Baso % (Auto) 1.0 Neut # (Auto) 3400 Lymph # (Auto) 1400 [place] # (Auto) 500 Eos # (Auto) 300 Baso # (Auto) 100 Sodium 136 L Potassium 3.8 Chloride 111 H Carbon Dioxide 19 L BUN 18 H Creatinine 0.61 Estimated GFR > 60 BUN/Creatinine Ratio 29.5 H Glucose 51 L D Calcium 7.9 L Total Bilirubin 1.1 AST 23 ALT 11 Alkaline Phosphatase 54 Total Protein 5.4 L Albumin 3.1 L Globulin 2.3 Albumin/Globulin Ratio 1.3 PFSH Medical History (Updated 06/14/25 @ 12:54 by Avery Chin MD) HLD (hyperlipidemia) Rheumatoid arthritis Anxiety Depression HSV-2 (herpes simplex virus 2) infection Surgical History (Updated 06/13/25 @ 14:10 by Rasta Lora MD) No pertinent past surgical history Family History (Updated 06/13/25 @ 14:09 by Rasta Lora MD) Mother Hx of cholecystectomy Social History household members: spouse Tobacco & Substance Use alcohol intake: former Assessment & Plan Assessment and plan (1) Hematoma and contusion: Status: Acute Plan there is no need for biopsy or excision. The lesion is already spontaneously draining and should resolved with time. would keep it covered as long as it is draining. it is OK to get it wet. Time-Based Coding :: [TOTAL MINUTES] spent with patient and on the chart (including review of chart, obtaining history, exam, reviewing outside data, placing orders, documenting exam and treatment plan, and counseling patient) on [DATE]. PROFEE Charge Codes Inpatient or Observation consultation: [id number]
--- NOTE | 2025-06-14 13:13 | DIET.CONS ---
Dietary Consultation Note Admission Date: 06/13/2025 04:31 Assessment: 74 y F admitted for acute pancreatitis. Dietitian screened for low MNA score. Met with pt at bedside. Reports 10-12 lb weight loss since Sep 29. Associates this with having less of an appetite which resulted in not snacking on nuts before dinner time and stopping her 3 alcoholic drinks per week. Was still doing 3 meals per day. Pt hesitant to gain all weight back, reporting back to 115# would be good. Provided educ on healthy BMI for age and that 115# is too low for height of 5 ft 6 in based on age. Multiple years ago she was 130#. NFPE with mild muscle loss in temples and deltoid and mild subcutaneous fat loss in buccal and orbital fat pads Ht: 167.64 cm Wt: 48.988 kg BMI: 17.4 UBW: 54.55 kg on Sep 29 2024 (-10% weight loss in 8-9 months, non-severe) Last BM: 06/12/25 (06/13/25 05:11) MNA: 5 Nito Score: 21 Diet: 06/14/25 Lunch General (Regular) Diet Diet Modifications: Food Texture: Level 7 - Regular Liquid Consistency: Level 0 - Thin Nutrition Percent Meal Consumed 10 06/14/25 12:44 Percent Meal Consumed patient is NPO 06/13/25 18:00 Percent Meal Consumed 0% 06/13/25 06:00 Labs: RBC 3.17 X10^6/uL (4.0-5.2) L 06/14/25 03:49 Hgb 11.0 g/dL (12.0-16.0) L 06/14/25 03:49 Hct 31.8 % (36-46) L 06/14/25 03:49 Creatinine 0.61 mg/dL (0.52-1.04) 06/14/25 03:49 Nutrition Diagnosis: Moderate chronic protein calorie malnutrition r/t reduced appetite as evidenced by BMI severely underweight for age (17.4), mild muscle loss in temples and deltoid, and mild subcutaneous fat loss in buccal and orbital fat pads Interventions: -Discussed getting back to 120-130# with extra 250 kcals per day through adding 1/4 cup nuts back in daily and can do fruit/azeri yogurt smoothie when pt back on diet EER: [id number] kcals (30-35 kcals/kg per BMI) 50-60 g protein (1-1.2 g/kg per age, PCM vs 16% kcals) Monitoring/Evaluations: po intakes, diet tolerance Electronically Signed by: Mariela Fairchild 06/14/25 13:13 Clinical Dietitian [address] [address]
[2025-06-14 16:00] VITALS: BP 123/46; PULSE 88; TEMP 36.2; O2SAT 97
[2025-06-14 20:00] VITALS: BP 104/50; PULSE 80; RESP 17; TEMP 36.5; O2SAT 98
[2025-06-14] MEDS: SODIUM CHLORIDE 0.9% 1,000 ML 75 ML IV (22:53)
[2025-06-15] VITALS: BP 125/60; PULSE 68; RESP 16; O2SAT 100
[2025-06-15 04:00] VITALS: BP 137/65; PULSE 78; RESP 16; O2SAT 97
[2025-06-15 08:00] VITALS: BP 145/67; PULSE 63; RESP 15; TEMP 36.2; O2SAT 98
--- NOTE | 2025-06-15 10:30 | PM.DS.1 ---
History of Present Illness History of Present Illness Chief complaint: abd pain Narrative: From H&P: This is a 74 y/o female with rheumatoid arthritis, anxiety, depression and a history of HSV 2 who presented with around 12 hours of nausea, vomiting and epigastric pain. ED workup showed high lipase and CT abdomen done at [facility] (our system was down) showed pancreatitis w/o hemorrhage, necrosis or pseudocyst. She does not drink alcohol, LFTs unremarkable, did not have recent infections or abdominal injuries. She has rheumatoid arthritis and only recent change of her medications was 10 mg on a prednisone taper. Treated with antiemetic, IVFs and analgesics and admitted to medicine. Unable to tolerate PO. Discharge Providers Provider Date of admission: 06/13/25 04:31 Discharge Date: 06/15/25 Primary care physician: Doctor Jose Luis MD Consults: 06/14/25 12:10 Consult to General Surgery Routine Comment: Consulting Provider: Avery Chin Reason for consultation: Left Leg Skin Lesion Has provider been notified: Yes Discharge provider: Gabriel Lyman MD Summary Hospital Course Discharge Diagnosis: 1. Acute Pancreatitis, improved. Lipase 94895. - no recent use of alcohol. No history of excessive daily use. - triglycerides 74, cholesterol 204, LDL 80 - CT abdomen and pelvis. Impressions: ?Findings concerning for acute pancreatitis suggest clinical correlation with pancreatic enzyme levels. No pseudocyst formation. No bowel obstruction or abnormal bowel wall thickening. 2. Rheumatoid Arthritis, recent flare. - at home she is on azathioprine and 10 mg of Prednisone on a recent taper 3. Anxiety / Depression, stable. - Prozac at home 4. Herpes infection, stable. - Valacyclovir at home Hospital Course: 06/14: She is beginning to feel hungry. The pain has resolved. We will back off on the IV fluid rate and trial her on a diet cautiously today. The white count is 5.7. The MCV is 100.1. The hemoglobin is 11.0. The liver enzymes are normal. The BMP is normal. 06/15: No further Sx. She is agreeable to discharge. She will follow up with her ict quality assurance engineer on to discuss whether or not had given her recent episode of pancreatitis. She will have a regular diet at home. Status at Discharge Cognitive/behavioral status at discharge: oriented Functional status at discharge: independent ambulation Overall status at discharge: patient is back to baseline Time Spent with Patient Time spent: Greater than 30 minutes Exam Vital Signs (past 8 hours): - 06/15/25 04:00 06/15/25 08:00 Temperature 97.2 F L Pulse Rate 78 63 Respiratory Rate 16 15 Blood Pressure 137/65 145/67 H Pulse Oximetry 97 98 Oxygen Flow Rate 0 0 Oxygen Delivery Method Room Air Oxygen Flow Rate 0 Narrative Exam Narrative: NAD, normal speech. Breathing comfortably. Abdomen is nondistended. Mild leg and wrist edema. Normal speech. Objective ECG Impression: Intervals Bryant Rate: 62 P: 79 SC: 166 QRS: 40 QRSD: 78 T: 33 QT: 444 QTc: 450 Interpretive Statements Sinus rhythm with premature atrial complexes Imaging Multiple studies:: Radiologist's impression: Abdomen US: Cholelithiasis without sonographic evidence of cholecystitis. No biliary dilatation. Pancreatic coarse echotexture likely related to pancreatitis. Small volume of free fluid. CTAP: SVH, Findings of acute pancreatitis, and moderate constipation. Labs 06/14/25 03:49 06/14/25 03:49 PFSH Medical History HLD (hyperlipidemia) Rheumatoid arthritis Anxiety Depression HSV-2 (herpes simplex virus 2) infection Surgical History No pertinent past surgical history Family History Mother Hx of cholecystectomy Social History household members: spouse alcohol intake: former Discharge Assessment & Plan Assessment and Plan Assessment: 1. Pancreatitis, improved. Plan of Treatment: Discharge home with close follow up. She was asked to call ict quality assurance engineer today to discuss Imuran which may Cav contributed to her pancreatitis. Discharge Plan Discharge Plan Patient Disposition: Home Provider Discharge Comment: Stable for discharge home, she will discuss her azathioprine with her ict quality assurance engineer this week. This has been implicated in drug-induced pancreatitis. Discharge orders & Medications Prescriptions: Continued fluoxetine 20 mg capsule 20 mg PO DAILY azathioprine 50 mg tablet 100 mg PO DAILY metronidazole 0.75 % cream 1 applic topical BID ketoconazole 2 % cream 1 applic topical DAILY PRN (Reason: Skin condition) prednisone 5 mg tablet 10 mg PO DAILY valacyclovir 500 mg tablet 500 mg PO DAILY Medication counseling provided by Pharmacist: No Follow up/Referrals: Jose Luis,Doctor, [Primary Care Provider, Medical] Diet/Activity/Treatments Diet: Diet as Tolerated Visit Report/Discharge Packet Instructions: DI for Pancreatitis, Skin Wound, Foot Care_ Skin Care Stand Alone Forms: Patient Portal/API, Stroke Signs & Symptoms Discharge Data Primary Care Provider: Jose Luis,Doctor
--- NOTE | 2025-06-15 12:49 | CM.DPC ---
DCP Discharge Home Per MD, pt medically stable to discharge home today with no identified barriers to discharge and orders completed. SW met bedside with pt and RN and explained role and pt confirms she is agreeable with discharge to home today and states spouse will transport as he is working from home today and RN confirmed dc instructions and pwk should be ready about 1200 today and pt called spouse and he will arrive soon to transport her home. Pt does not anticipate any further needs at this time and preference is home today. ANASTASIIA Glass
--- NOTE | 2025-06-15 13:44 | PC.NURSE ---
Discharge: She feels well and would like to go home. Has a leg wound which has been seen by MD and surgeon. Pt is to clean with soap and water, rinse and apply new dressing. She still has tenderness in the upper quads. However has denied need for pain medication. Tolerates fluids and foods w/out problems. Vds w/out diff. Discharge packet reviewed. No rx. Questions answered. Pt d/c to home via auto with spouse.
== END 2025-06-15 12:25 | disposition home or self-care (01) | DRG 439 ==
LOC: ED 20:30 → AC 06-13 04:32
PROVIDERS: Admitting Provider Internal Medicine; Emergency Provider Emergency Medicine; Referring Provider Emergency Medicine; Visit Provider Internal Medicine
DX: K85.90 Acute pancreatitis without necrosis or infection, unspecified (principal); E44.0 Moderate protein-calorie malnutrition; Z68.1 Body mass index [BMI] 19.9 or less, adult; B00.9 Herpesviral infection, unspecified; M06.9 Rheumatoid arthritis, unspecified; F32.A Depression, unspecified; F41.9 Anxiety disorder, unspecified; M79.81 Nontraumatic hematoma of soft tissue; Z79.624 Long term (current) use of inhibitors of nucleotide synthesis; Z79.52 Long term (current) use of systemic steroids
CPT/HCPCS: 36415; 76700; 80053; 80061; 81003; 83690; 85025; 93005; 96361; 96374; 96375; 99222; 99284; 99291; J1171; J1885